=== PATIENT | female | born 1985 | race Caucasian/White ===

== ENCOUNTER 2017-05-20 22:59 | Emergency (ER) | payer BC ==
[~2017-05-20] VITALS: Ht 157.5 cm; Wt 47.0 kg
[~2017-05-20 22:59] MED LIST: MTR600X PO; OXYC5TAB PO; PRENTAB26 PO
[2017-05-20 23:00] VITALS: TEMP 36.5; Ht 157.5 cm; Wt 47.0 kg
[2017-05-20] MEDS ORDERED: METOCLOPRAMIDE HCL INJ 5 MG/ML 2 ML VIAL IV STA (23:25)
[2017-05-20] MEDS ORDERED: ACETAMINOPHEN 500 MG TAB PO STA (23:25)
[2017-05-20] MEDS ORDERED: DiphenhydrAMINE HCL 50 MG/ML VIAL IV STA (23:25)
[2017-05-20] MEDS ORDERED: DEXAMETHASONE SOD INJ 4 MG/ML VIAL IV STA (23:25)
[2017-05-20] MEDS ORDERED: KETOROLAC TROMETHAMINE 30 MG/ML VIAL IV STA (23:25)
--- NOTE | 2017-05-20 23:31 | EMERGENCY ROOM VISIT NOTE ---
History Report prepared by David: Joseph Edwards Under the Supervision of: Dr. Micky Robertson M.D. First contact with patient: 23:12 Chief Complaint: HEADACHE Stated Complaint: MIGRAINE, VOMITING History of Present Illness The patient is a 31 year old white female with a past medical history of migraines who presents to the ED with a cc of a constant headache beginning around 1530 today. Positive nausea and vomiting. Negative abdominal pain, urinary symptoms, fevers, chills, and cough. She states that she has taken Excedrin and butalbital, and she has been lying in a dark room and used a cold compress. The patient notes that her last migraine was two months ago, and there are no triggers or any aura. She notes that she is currently breast feeding. The patient does not use any alcohol or drugs. Source of History: patient Onset: 1529 today Position: head Quality: ache Timing: constant Associated Symptoms: + nausea, + vomiting, No fevers, No chills, No cough, No abdominal pain, No urinary symptoms Review of Systems See HPI for pertinent positives and negatives. A total of ten systems were reviewed and were otherwise negative. Past Medical & Surgical Medical Problems: (1) 40 weeks gestation of (2) Normal labor Social History Smoking Status: Never Smoker Marital Status: Occupation Status: employed Current/Historical Medications No Active Prescriptions or Reported Meds Allergies Coded Allergies: No Known Allergies (Unverified , 05/20/17) Physical Exam Vital Signs Date Time Temp Pulse Resp B/P (MAP) Pulse Ox O2 Delivery O2 Flow Rate FiO2 05/21/17 00:36 88 16 120/65 99 Room Air 05/20/17 23:00 36.5 95 20 129/77 97 Room Air Physical Exam GENERAL: Awake, alert, well-appearing, NAD HENT: Normocephalic, atraumatic. EYES: Photophobic. EOMI. No proptosis. Normal conjunctiva. Sclera non-icteric. NECK: Supple. No nuchal rigidity. No meningismus. FROM. RESPIRATORY: CTAB, no rhonchi, wheezing, crackles CARDIAC: RRR, no MRG ABDOMEN: Soft, NTND, BS+ MSK: No chest wall TTP, no LE edema NEURO: CN 2-12 intact, 5/5 upper and lower extremity strength, no dysmetria, no drift, good finger to nose, no sensory deficits. SKIN: No rash or jaundice noted. Medical Decision & Procedures Medications Administered Medications (Trade) Dose Ordered Sig/Sunita Route Start Time Stop Time Status Last Admin Dose Admin Metoclopramide HCl (Reglan Inj) 10 mg NOW STAT IV 05/20/17 23:25 05/20/17 23:30 DC 05/20/17 23:49 10 MG Ketorolac Tromethamine (Toradol Inj) 30 mg NOW STAT IV 05/20/17 23:25 05/20/17 23:30 DC 05/20/17 23:50 30 MG Acetaminophen (Tylenol Tab) 1,000 mg NOW STAT PO 05/20/17 23:25 05/20/17 23:30 DC 05/21/17 00:02 1,000 MG Dexamethasone Sodium Phosphate (Decadron Inj) 10 mg NOW STAT IV 05/20/17 23:25 05/20/17 23:30 DC 05/20/17 23:50 10 MG Diphenhydramine HCl (Benadryl Inj) 50 mg NOW STAT IV 05/20/17 23:25 05/20/17 23:30 DC 05/20/17 23:49 50 MG ED Course 2312: The patient was evaluated in room C2. A complete history and physical exam was performed. 0058: I reevaluated the patient, and she was doing well. Discussed results and discharge instructions: She verbalized understanding and agreement. The patient is ready for discharge. Medical Decision The patient is a 31 year old white female with a past medical history of migraines who presents to the ED with a cc of headache beginning around 1530 today. Triage Nursing notes reviewed. The patient's presentation and history were concerning for etiologies such as migraine headache, meningitis, sinusitis, CO exposure, ICH, SAH, infection, tumor, headache, sinus thrombosis, arterial dissection, as well as others were entertained. Patient was seen and evaluated the bedside. Patient has complained of having a migraine type headache. Patient denies any numbness tingling or weakness. Patient denies any infectious symptoms. Patient does not have any neck pain or neck stiffness. Patient denies any recent antibiotics. Patient states that the only thing that is atypical about it is that it is not amenable to at-home treatment. Patient does state that she has some photophobia as well as phonophobia. Patient did try taking [id number] type medications but without any relief. Patient was given medications. I did not believe that the patient needed advanced imaging at this time as the patient had a nonfocal neurologic exam. Furthermore, after reassessment the patient's pain was resolved. I did think about the possibility of thrombosis given the patient is however she is 11 months out again with a nonfocal neurologic exam and resolution of her pain makes this less likely. Patient was very well- appearing upon reassessment. Patient was able tolerate by mouth. I instructed the family preservation caseworker did discuss follow-up physicians she does not currently have a PCP. She was told that this would be important as she may be started on abortive for maintenance therapy and in addition may require any neuro referral in the future if she has persistent headaches. Patient was deemed suitable for outpatient follow-up and treatment. All questions were answered. Patient was agreeable to the plan of care. Patient is currently breast-feeding and given the medications that she receives stated that she should probably pump but not feed the child with breast milk for 2 full days. I told her that she may discuss medications with her METEOROLOGY TEACHER and if suitable to resume further she may do so at their instructions. Patient was given strict follow-up, discharge, and return precautions. All questions were answered. Patient was deemed suitable for outpatient follow-up at this time. Patient agreed with the plan of care and was safely discharged home. Medication Reconcilliation Current Medication List: was personally reviewed by me Blood Pressure Screening Patient's blood pressure: Normal blood pressure Impression Primary Impression: Migraine Scribe Attestation The scribe's documentation has been prepared under my direction and personally reviewed by me in its entirety. I confirm that the note above accurately reflects all work, treatment, procedures, and medical decision making performed by me. Departure Information Dispostion Home / Self-Care Prescriptions No Active Prescriptions or Reported Meds Referrals No Doctor, Assigned (PCP) Forms HOME CARE DOCUMENTATION FORM, IMPORTANT VISIT INFORMATION Patient Instructions ED Headache Migraine, My [facility] Additional Instructions Please return to the emergency department if you have worsening or recurrent symptoms not amenable to at-home treatment. Please call for a follow-up appointment with her primary care physician. Please take your medications as prescribed. If you have other concerns and/or complaints please feel free to also call your primary care physician's office or return the ED for further evaluation, management, and treatment. Take your medications as prescribed. If taking an antibiotic consider taking a probiotic and/or eating yogurt, but at the least, please take with food as it can cause upset stomach. Your received benadryl, dexamethasone, reglan, toradol, and tylenol. As we discussed, please do not breastfeed but formula feed your child for the next two days. If you are able, feel free to discuss this with you toll ticket clerk and if they recommend you may resume soon, follow their instructions. Please follow-up with her primary care physician in order to discuss possible treatment options in the future for migraine headaches. Please also become persistently medical management as an outpatient you may discuss a neurology follow-up as well. You have been examined and treated today on an emergency basis only. This is not a substitute for, or an effort to provide, complete comprehensive medical care. It is impossible to recognize and treat all injuries or illnesses in a single emergency department visit. It is therefore important that you follow up closely with [facility], your PCP, and/or your specialist(s). Call as soon as possible for an appointment. Thank you for your time and consideration. I look forward to speaking with you again soon. Please don't hesitate to call us if you have any questions. Work Instructions Specific Date: 05/21/2017 Additional Instructions: Please excusen Luis Enrique Morocho from work on 05/21/2017 she was seen and evaluated under my care at [facility]. Micky Robertson MD Problem Qualifiers Primary Impression: Migraine Migraine type: without aura Status migrainosus presence: without status migrainosus Intractability: not intractable Qualified Codes: G43.009 - Migraine without aura, not intractable, without status migrainosus
[2017-05-21 00:36] VITALS: BP 120/65; PULSE 88; O2SAT 99
== END 2017-05-21 01:05 | disposition home or self-care (01) ==
LOC: C.EDB 23:00 → C.EDC 05-21 01:05
DX: G43.009 Migraine without aura, not intractable, without status migrainosus (principal)